=== PATIENT | male | born 1985 | race Caucasian/White ===

== ENCOUNTER 2021-11-12 17:44 | Inpatient (IN) ==
[2021-11-12] MEDS ORDERED: fentaNYL 100 MCG/2 ML VIAL IV STA (18:29)
[2021-11-12] MEDS ORDERED: ONDANSETRON 4 MG/2 ML VIAL IV STA (18:29)
[2021-11-12] MEDS ORDERED: SODIUM CHLORIDE 0.9% 1,000 ML IV STA (18:29)
[2021-11-12] MEDS ORDERED: ONDANSETRON 4 MG/2 ML VIAL IV PRN (18:39)
[2021-11-12] MEDS: HYDROmorphone 1 MG/1 ML SYRINGE IV PRN (20:23)
[2021-11-12] MEDS: DEXTROSE 5% NACL 0.45% 1,000 ML IV SCH (21:52)
[2021-11-12] MEDS: PIPERACILLIN/TAZOBACTAM 3,375 MG in SODIUM CHLORIDE 0.9% 100 ML IV SCH (21:52)
[2021-11-13] MEDS: HYDROmorphone 1 MG/1 ML SYRINGE IV PRN ×5 (00:54→20:27)
[2021-11-13] MEDS ORDERED: ACETAMINOPHEN 325 MG TABLET PO PRN (00:56)
[2021-11-13] MEDS: PIPERACILLIN/TAZOBACTAM 3,375 MG in SODIUM CHLORIDE 0.9% 100 ML IV SCH ×3 (03:50→20:14)
[2021-11-13] MEDS ORDERED: BUPIVACAINE MPF 0.25% 10 ML VIAL ONE (06:05)
[2021-11-13] MEDS ORDERED: LIDOCAINE 1%/EPI INJ 20 ML VIAL ONE (06:05)
[2021-11-13] MEDS ORDERED: TISSUE ADHESIVE 1 EACH APPLICATOR TOP ONE (06:05)
[2021-11-13 07:03] LABS: Basophils % 0.2 % (0.0-0.8); Eosinophils % 0.1 % (0.00-10.9); Hematocrit 43.6 VOL% (42.0-52.0); Hemoglobin 14.4 GM/DL (14.0-18.0); Immature Granulocytes % 0.6 %; Lymphocytes # 1.6 10*3/uL (1.4-4.0); Mean Corpuscular Volume 92.6 FL (87-102); Mean Platelet Volume 10.8 FL (9.6-12.0); Monocytes # 0.9 10*3/uL (0.11-0.8); Monocytes % 5.8 % (1.7-12.7); Neutrophils % 83.3 % (38.7-73.9); Platelet Count 214 T/CUMM (130-400); Red Blood Count 4.71 MC/CUMM (3.8-5.5); Red Cell Distribution Width 12.3 % (9.3-17.3); White Blood Count 15.6 T/CUMM (4-12)
[2021-11-13 07:09] LABS: INR 1.1; Partial Thromboplastin Time 28.2 SECS (23.7-32.9)
[2021-11-13 07:15] LABS: Calcium 8.8 MG/DL (8.5-10.1); Osmolality,Calculated 277.3 MOS/KG (273-304); Potassium 3.5 MMOL/L (3.5-5.1)
[2021-11-13] MEDS ORDERED: propofoL 200 MG/20 ML VIAL IV ONE (07:40)
[2021-11-13] MEDS ORDERED: ROCURONIUM 50 MG/5 ML VIAL IV ONE (07:40)
[2021-11-13] MEDS ORDERED: LIDOCAINE 2% 5 ML VIAL ONE (07:40)
[2021-11-13] MEDS ORDERED: SUCCINYLCHOLINE 200 MG/10 ML VIAL ONE (07:40)
[2021-11-13] MEDS ORDERED: fentaNYL 100 MCG/2 ML VIAL ONE (07:40)
[2021-11-13] MEDS ORDERED: MIDAZOLAM 2 MG/2 ML VIAL ONE (07:40)
[2021-11-13] MEDS ORDERED: PHENYLEPHRINE 10 MG/1 ML VIAL IV ONE (08:16)
[2021-11-13] MEDS ORDERED: DEXAMETHASONE 4 MG/1 ML VIAL ONE (08:44)
[2021-11-13] MEDS ORDERED: ONDANSETRON 4 MG/2 ML VIAL ONE (08:44)
[2021-11-13] MEDS ORDERED: SUGAMMADEX 200 MG/2 ML VIAL IV ONE (08:51)
[2021-11-13] MEDS ORDERED: GLYCOPYRROLATE 0.4 MG/2 ML VIAL ONE (08:52)
[2021-11-13] MEDS ORDERED: SEVOFLURANE 1 UNIT/15 MINUTE INH ONE (08:53)
[2021-11-13] MEDS ORDERED: LACTATED RINGERS 1,000 ML IV ONE (08:56)
[2021-11-13] MEDS ORDERED: MEPERIDINE 25 MG/1 ML VIAL ONE (09:12)
[2021-11-13] MEDS: MEPERIDINE 25 MG/1 ML VIAL IV PRN ×2 (09:14→09:40)
[2021-11-13] MEDS: PANTOPRAZOLE 40 MG TABLET PO SCH (10:12)
[2021-11-13] MEDS: DEXTROSE 5% NACL 0.45% 1,000 ML IV SCH ×2 (10:22→23:54)
[2021-11-14] MEDS: HYDROmorphone 1 MG/1 ML SYRINGE IV PRN ×5 (00:56→20:55)
[2021-11-14] MEDS: PIPERACILLIN/TAZOBACTAM 3,375 MG in SODIUM CHLORIDE 0.9% 100 ML IV SCH ×2 (03:32→10:19)
[2021-11-14] MEDS: PANTOPRAZOLE 40 MG TABLET PO SCH ×2 (07:32→08:42)
[2021-11-14 09:20] LABS: Basophils % 0.1 % (0.0-0.8); Hematocrit 38.6 VOL% (42.0-52.0); Hemoglobin 13.1 GM/DL (14.0-18.0); Immature Granulocytes % 0.4 %; Immature Granulocytes Absolute 0.05 #; Lymphocytes # 1.1 10*3/uL (1.4-4.0); Lymphocytes % 8.2 % (21.2-54.2); Mean Corpuscular HGB Conc 33.9 GM/DL (32-36); Mean Corpuscular Volume 91.3 FL (87-102); Mean Platelet Volume 10.8 FL (9.6-12.0); Monocytes # 0.9 10*3/uL (0.11-0.8); Monocytes % 6.9 % (1.7-12.7); Neutrophils % 84.4 % (38.7-73.9); Platelet Count 186 T/CUMM (130-400); Red Blood Count 4.23 MC/CUMM (3.8-5.5); Red Cell Distribution Width 12.1 % (9.3-17.3); White Blood Count 12.9 T/CUMM (4-12)
[2021-11-14 09:34] LABS: Calcium 9.2 MG/DL (8.5-10.1); Osmolality,Calculated 268.2 MOS/KG (273-304); Potassium 3.7 MMOL/L (3.5-5.1)
[2021-11-14] MEDS ORDERED: ONDANSETRON 4 MG/2 ML VIAL IV PRN (11:48)
[2021-11-14] MEDS ORDERED: KETOROLAC 30 MG/1 ML VIAL IV ONE (12:30)
[2021-11-14] MEDS ORDERED: diphenhydrAMINE 2% CREAM 28 GM TUBE TOP PRN (13:21)
[2021-11-14] MEDS ORDERED: diphenhydrAMINE CAP 25 MG CAPSULE PO PRN ×2 (13:21)
[2021-11-14] MEDS: CIPROFLOXACIN INJ 400 MG/200 ML PREMIX IV SCH (13:46)
[2021-11-14] MEDS: metroNIDAZOLE INJ 500 MG/100 ML PREMIX IV SCH ×2 (15:14→21:53)
[2021-11-14] MEDS: KETOROLAC 15 MG/1 ML VIAL IV SCH ×2 (17:22→23:31)
[2021-11-14] MEDS: DEXTROSE 5% NACL 0.45% 1,000 ML IV SCH (21:51)
[2021-11-15] MEDS: CIPROFLOXACIN INJ 400 MG/200 ML PREMIX IV SCH ×2 (01:21→13:38)
[2021-11-15] MEDS: DEXTROSE 5% NACL 0.45% 1,000 ML IV SCH ×2 (01:42→15:52)
[2021-11-15] MEDS: metroNIDAZOLE INJ 500 MG/100 ML PREMIX IV SCH ×3 (05:40→22:15)
[2021-11-15] MEDS: KETOROLAC 15 MG/1 ML VIAL IV SCH ×4 (05:40→23:26)
[2021-11-15] MEDS: PANTOPRAZOLE 40 MG TABLET PO SCH (08:01)
[2021-11-15 10:13] LABS: Basophils % 0.1 % (0.0-0.8); Eosinophils # 0.1 10*3/uL (0.0-0.87); Eosinophils % 0.6 % (0.00-10.9); Hemoglobin 12.8 GM/DL (14.0-18.0); Immature Granulocytes % 0.4 %; Immature Granulocytes Absolute 0.04 #; Lymphocytes # 1.1 10*3/uL (1.4-4.0); Mean Corpuscular HGB Conc 33.7 GM/DL (32-36); Mean Corpuscular Volume 91.1 FL (87-102); Monocytes # 0.6 10*3/uL (0.11-0.8); Monocytes % 6.4 % (1.7-12.7); Neutrophils % 80.5 % (38.7-73.9); Platelet Count 213 T/CUMM (130-400); Red Blood Count 4.17 MC/CUMM (3.8-5.5); White Blood Count 9.5 T/CUMM (4-12)
[2021-11-15 10:38] LABS: Calcium 8.9 MG/DL (8.5-10.1); Osmolality,Calculated 273.8 MOS/KG (273-304); Potassium 3.1 MMOL/L (3.5-5.1)
[2021-11-16] MEDS: CIPROFLOXACIN INJ 400 MG/200 ML PREMIX IV SCH (01:16)
[2021-11-16] MEDS: KETOROLAC 15 MG/1 ML VIAL IV SCH (05:30)
[2021-11-16] MEDS: metroNIDAZOLE INJ 500 MG/100 ML PREMIX IV SCH (05:38)
[2021-11-16 08:58] VITALS: BP 108/73
[2021-11-16] MEDS: PANTOPRAZOLE 40 MG TABLET PO SCH (09:10)
[2021-11-16] MEDS: DEXTROSE 5% NACL 0.45% 1,000 ML IV SCH (09:11)
== END 2021-11-16 12:25 | disposition home or self-care (01) | DRG 340 ==
LOC: N.3E 17:44 → N.ED 17:44 → N.3E 20:03
PROVIDERS: ADMIT Student in an Organized Health Care Education/Training Program; ATTEND Student in an Organized Health Care Education/Training Program